=== PATIENT | female | born 1945 | race Caucasian/White ===

== ENCOUNTER 2018-01-28 00:09 | Emergency (ER) | payer MEDICARE, OTHER, SELFPAY ==
[2018-01-28] MEDS: Dexamethasone 10 MG/ML VIAL (14:35)
--- NOTE | 2018-01-28 16:17 | PDOC.ERCMPRO ---
Care Management Progress Note 01/28-Dr. Rebollar requested assistance with a [facility] appt early next week for re-evaluation of left upper eyelid edema, ?sting/bite. Referral, demographics, and physician note faxed to [facility] this am.
== END 2018-01-28 02:57 | disposition home or self-care (01) ==
PROVIDERS: Emergency Provider Physician Assistant; PCP Emergency Medicine
DX: H02.844 Edema of left upper eyelid (principal); I10 Essential (primary) hypertension
CPT/HCPCS: 99283; J1100

== ENCOUNTER → 2020-01-01 08:45 | Outpatient (BNVA) | payer MEDICARE, OTHER, SELFPAY | PROVIDERS: PCP Emergency Medicine; Referring Provider Emergency Medicine; Visit Provider Nurse Practitioner Gerontology | DX: N39.41 Urge incontinence (principal); I10 Essential (primary) hypertension | CPT/HCPCS: 99203; 99214 ==

== ENCOUNTER 2020-02-21 02:08 | Outpatient (CLI) | payer MEDICARE, OTHER, SELFPAY ==
--- NOTE | 2020-02-21 08:15 | DI.MAMMO_ITS ---
EXAM: MG MAMMO SCREENING CLINICAL HISTORY: screening,z12.39 TECHNIQUE: Bilateral full field digital CC and MLO mammographic images were obtained with 3D tomosyn thesis and utilizing computer aided detection (CAD). COMPARISON: Available for comparison. FINDINGS: Masses/Architectural Distortion: None seen. Microcalcifications: No suspicious pleomorphic-type are seen. Skin Thickening/Nipple Retraction: None. IMPRESSION: 1. No significant interval change with no specific features of malignancy noted. 2. Unless there is more urgent need, screening mammography is recommended, as per [employer] guidelines. BI-RADS Category 1 - Negative Breast Density - Category A - Almost entirely fatty A negative radiographic report should not delay biopsy if a dominant or clinically suspicious mass is present. Up to ten percent of cancers are not identified on mammography. A negative report may reinforce clinical impression. Adenosis and dense breasts may obscure an underlying neoplasm. False positive reports average 6 to 10%. Patient will receive a letter notifying them of these results.
== END 2020-02-21 02:28 ==
PROVIDERS: PCP Emergency Medicine; Visit Provider Emergency Medicine
DX: Z12.31 Encounter for screening mammogram for malignant neoplasm of breast (principal)
CPT/HCPCS: 77063; 77067

== ENCOUNTER 2020-10-14 13:45 | Outpatient (REF) | payer MEDICARE, OTHER, SELFPAY ==
[2020-10-14 20:51] LABS: Anion Gap 7.1 mmol/L (3-11); BUN 15 mg/dL (7-18); CO2 29.9 mmol/L (21.0-32.0); CREATININE 0.9 mg/dL (0.55-1.02); Calcium 9.4 mg/dL (8.5-10.1); Chloride 105 mmol/L (98-107); Glucose 83 mg/dL (74-106); Potassium 4.3 mmol/L (3.5-5.1); Sodium 142 mmol/L (136-145)
== END 2020-10-14 13:46 | disposition home or self-care (01) ==
LOC: LBN 13:45
PROVIDERS: PCP Emergency Medicine; Visit Provider Emergency Medicine
DX: I10 Essential (primary) hypertension (principal)
CPT/HCPCS: 80048

== ENCOUNTER 2021-05-28 02:38 | Outpatient (CLI) | payer MEDICARE, SELFPAY ==
--- NOTE | 2021-05-28 09:34 | DI.MAMMO_ITS ---
Exam(s) MAMMO SCREENING EXAM: MAMMO SCREENING CLINICAL HISTORY: screening,Z12.39. TECHNIQUE: Bilateral full field digital CC and MLO mammographic images were obtained with 3D tomosyn thesis and utilizing computer aided detection (CAD). COMPARISON: Prior mammograms dating back to 2011, the most recent being January 2020. FINDINGS: No CAD designations There are no new spiculated masses nor malignant appearing microcalcification groups. Partially calcified lymph node in the right axilla is unchanged from prior studies. There is no significant architectural distortion nor skin thickening-retraction. IMPRESSION: No radiographic evidence of malignancy. BI-RADS Category 1 - Negative Breast Density - Category A - Almost entirely fatty Breast density Category C or D implies that the patient has dense breast tissue. Dense breast tissue can make it harder to find cancer on a mammogram. Dense breast tissue is also associated with an incr eased risk of breast cancer. This information about the result of the mammogram report was provided to the patient to raise their awareness. Use this report when you speak with the patient about their risks for breast cancer, which includes their family history. At that time, you may recommend additional screening tests (Ultrasoun d or MRI) as these tests may add significant information. A negative radiographic report should not delay biopsy if a dominant or clinically suspicious mass is present. Up to ten percent of cancers are not identified on mammography. A negative report may reinforce clinical impression. Adenosis and dense breasts may obscure an underlying neoplasm. False positive reports average 6 to 10%. Patient will receive a letter notifying them of these results.
== END 2021-05-28 02:58 ==
PROVIDERS: PCP Emergency Medicine; Visit Provider Emergency Medicine
DX: Z12.31 Encounter for screening mammogram for malignant neoplasm of breast (principal)
CPT/HCPCS: 77063; 77067

== ENCOUNTER 2021-05-28 03:08 | Outpatient (CLI) | payer MEDICARE, SELFPAY ==
[2021-05-28 08:54] LABS: Anion Gap 5.2 mmol/L (3-11); BUN 13 mg/dL (7-18); CO2 32.8 mmol/L (21.0-32.0); CREATININE 0.8 mg/dL (0.55-1.02); Calcium 9.7 mg/dL (8.5-10.1); Chloride 104 mmol/L (98-107); Glucose 90 mg/dL (74-106); Potassium 4.4 mmol/L (3.5-5.1); Sodium 142 mmol/L (136-145)
== END 2021-05-28 03:09 | disposition home or self-care (01) ==
LOC: LBO 03:08
PROVIDERS: PCP Emergency Medicine; Visit Provider Emergency Medicine
DX: I10 Essential (primary) hypertension (principal)
CPT/HCPCS: 36415; 80048

== ENCOUNTER 2021-11-11 01:39 | Outpatient (CLI) | payer MEDICARE, OTHER, SELFPAY ==
--- NOTE | 2021-11-11 14:36 | DI.RAD_ITS ---
Exam(s) XR KNEE RT 3V AP,LAT,SAUL EXAM: XR KNEE RT 3V AP,LAT,SAUL CLINICAL HISTORY: knee pain x one week and gave out, fall,M25.561. TECHNIQUE: 2D digital imaging was performed. COMPARISON: No exams were available for comparison FINDINGS: 3 views No evidence of fracture although does appear to a small joint effusion. Minimal degenerative changes . No osseous. No osteophytes. No joint space narrowing on the weight-bearing. Small osteophyte of superior aspect. IMPRESSION: Mild findings as described above. Also small joint effusion. DATA REPOSITORY: RADIATION DOSE DELIVERED:
== END 2021-11-11 01:59 ==
PROVIDERS: PCP Family Medicine; Visit Provider Physician Assistant
DX: M25.561 Pain in right knee (principal); M25.461 Effusion, right knee
CPT/HCPCS: 73562

== ENCOUNTER → 2022-01-15 09:10 | Outpatient (BNVA) | payer MEDICARE, OTHER, SELFPAY | PROVIDERS: PCP Family Medicine; Referring Provider Emergency Medicine; Visit Provider Surgery | DX: Z86.010 Personal history of colon polyps (principal); Z12.11 Encounter for screening for malignant neoplasm of colon ==

== ENCOUNTER 2022-03-03 06:30 | Day surgery (SDC) | payer MEDICARE, OTHER, SELFPAY ==
--- NOTE | 2022-03-03 05:52 | W.PREOPHP ---
Assessment and Plan Assessment and plan (1) Encounter for colorectal cancer screening: Status: Acute Assessment and plan: The patient? is a pleasant? 76 -year-old female who is here to discuss another screening colonoscopy. ? She denies any changes in bowel habits, melena, hematochezia, unintentional weight loss or family history of colon cancer.? The procedure and risks were discussed.? The prep was reviewed in detail.? Risks, benefits and complications have been reviewed. Complications include but are not limited to bleeding, pain, perforation, missed small lesion/polyp, sore throat, aspiration and adverse reaction to the medications. Questions were entertained and answered to their satisfaction and they wished to proceed. No guarantees were given or implied. Medications to be stopped: none COVID Test: no Anesthesia: general (without airway) Previous surgical intolerances: No Previous surgical complications: No Pulmonary risk factors: age > 60 Date of surgery: 02/17/22 Planned procedure: Yes Sleep apnea risks: Yes Can climb one flight of stairs (12-13 steps) in less than 30 seconds without stopping and without symptoms: Yes The surgery proposed for this patient is: mod risk Active cardiac conditions: No Active risk factors: none ASA (acetylsalicylic acid): not used Beta blockers: No Proceed with colonoscopy under sedation History of Present Illness Narrative: Mrs Cortez is a pleasant 76-year-old female who I am seeing today in the office to discuss another screening colonoscopy.? She tells me that at one point she had 3 adenomatous polyps removed and was asked to come back in 3 years.? She had a colonoscopy in 2010 at [facility] which showed no polyps.? She was noted to have some descending and sigmoid diverticulosis.? She had a repeat surveillance colonoscopy in 2017 which also showed no polyps just diverticulosis in the descending and sigmoid colon.? She is here now for another surveillance.? She denies any changes in bowel habits, melena, hematochezia, unintentional weight loss or family history of colon cancer.? She does have some intermittent left lower quadrant pain which usually subsides by her eating smaller amounts and drinking more fluids.? She does have a sister who had ruptured diverticulitis and had to have part of her bowel removed and ended up with a colostomy which was then reversed.? The patient has not had any issues with the anesthesia used in the past.? She is also requesting to have little sedation so that she can watch.? I discussed with her that as long as she is comfortable we can do that.? If she starts to contract her muscles and push against the scope then I may need to have anesthesia give her more sedation to relax her muscles.? She understands this and wishes to proceed. She is a quite healthy 76-year-old.? She takes some hydrochlorothiazide for mild hypertension otherwise she takes calcium as a supplement and that said.? She denies any shortness of breath or chest pain with activity. There have been no changes in her health since she was last seen in the office Review of Systems All systems reviewed & are unremarkable except as noted in HPI and below PFSH All Active Problems Encounter for colorectal cancer screening (Acute) COVID-19 (Acute ~01/07/22) Actinic keratoses (Acute) White coat syndrome with diagnosis of hypertension (Acute) Incontinence (Acute) Sebaceous cyst (Acute) Gentle palpation over the area stimulated removal of sebaceous cyst above urethra. Cystoscopy firm, dent in color, no surrounding erythema warmth to touch or masses. Shellfish allergy (Acute 12/04/13) Polyp of colon (Acute) Osteoporosis (Acute) Kidney stone (Acute) 1986 Essential hypertension (Chronic) Endometriosis (Acute) Benign paroxysmal positional vertigo (Acute) positional, recurrent, Medical History Abnormal laboratory test elevated triglycerides; mildly elevated platelets Female infertility Surgical History Colonoscopy - [facility] [place] 05/09 [facility] [place]; NEG Dilation and curettage (~1979) X 2 Kidney Stone Extraction (~1985) Family History Mother Essential hypertension Dementia Stroke Father Substance abuse Personal history of malignant neoplasm LUNG Sister No problems noted. Grandfather Diabetes Heart disease Kidney disease Grandfather Heart disease Grandmother Stroke Grandmother Dementia Social History Smoking/Tobacco Use Status: Never Smoking risk assessment performed?: Yes Alcohol Intake: current Alcohol Intake frequency: 0-2 drinks per day Drug use: Never Substance use type: does not use Do you feel safe at home: Yes Do you feel safe in your relationship?: Yes Meds Allergies and Home Medications Allergies Allergy/AdvReac Type Severity Reaction Status Date / Time shellfish derived Allergy Severe carries Verified 03/03/22 07:25 epi-pen Home Medications Medication Instructions Recorded Confirmed Type cholecalciferol (vitamin D3) 25 1,000 unit PO DAILY 08/17/12 03/03/22 History mcg (1,000 unit) capsule epinephrine 0.3 mg/0.3 mL 0.3 mg (0.3 mL) IM ONCE #1 pen 07/16/20 03/02/22 Rx injection, auto-injector (EpiPen 2-Parmjit) bisacodyl 5 mg tablet,delayed 5 mg PO ONCE colonscopy bowel prep 01/15/22 03/02/22 Rx release (Dulcolax (bisacodyl)) #4 tabs polyethylene glycol 3350 17 238 g PO ONCE colonoscopy prep 01/15/22 03/02/22 Rx gram/dose oral powder #238 grams hydrochlorothiazide 25 mg tablet 25 mg PO DAILY #90 tabs 01/19/22 03/03/22 Rx Exam Const General: cooperative, comfortable and no acute distress Orientation: alert and oriented x3 Resp Effort & Inspection: normal respiratory effort Auscultation: clear to auscultation bilaterally Cardio Rate: regular rate Rhythm: regular rhythm
--- NOTE | 2022-03-03 05:54 | COLE_ITS ---
Colonoscopy Report Date of procedure: 03/03/22 Pre-op diagnosis general: colon cancer screening, Hx of polyps Post-op diagnosis procedure note: other (polyps and diverticulosis) Procedure: Colonoscopy with polypectomy Surgeon: Natalia Barreto Anesthesia Type: General:No Airway Estimated blood loss (mL): 3 Pathology: other (cending, sigmoid and rectal polyp) Complications: None Disposition: same day Indications: The patient? is a pleasant? 76 -year-old female who is here to discuss another screening colonoscopy. ? She denies any changes in bowel habits, melena, hematochezia, unintentional weight loss or family history of colon cancer.? The procedure and risks were discussed.? The prep was reviewed in detail.? Risks, benefits and complications have been reviewed. Complications include but are not limited to bleeding, pain, perforation, missed small lesion/polyp, sore throat, aspiration and adverse reaction to the medications. Questions were entertained and answered to their satisfaction and they wished to proceed. No guarantees were given or implied. Prep: Miralax/Dulcolax Procedure Start Time: 08:33 Procedure End Time: 08:57 Retraction Time: 16 minutes Findings: 3 sessile polyps Procedure Description: After informed consent was obtained the patient was taken to the procedure room and placed in a left decubitous position. Monitors were applied and a time out was done. The patients name, date of , procedure, allergies to medications and metal in their body was reviewed. The patient was then sedated. Once sedated and comfortable a rectal exam was done. External exam was normal. Internal exam revealed a normal sphincter tone and no palpable masses. The scope was then introduced and retro-flexed. No internal hemorrhoids, polyps or masses were identified on retro-flexion. The scope was then advanced to the cecum without difficulty. The ileocecal vlave and appendiceal orifice were identified. The prep was adequate. The scope was then slowly retracted over 16 minutes back into the rectum. Polyps were removed with cold forceps in the as cending colon, sigmoid colon and rectum. There was mild descending and sigmoid diverticulosis noted. The scope was removed and the patient was woken up and taken back to Same day surgery in stable condition. The patient tolerated the procedure well and there were no immediate complications.
--- NOTE | 2022-03-03 05:56 | W.PM.DSUDISC ---
Discharge Plan Disposition Patient Disposition: HOME Condition: Good Discharge Details Reason For Visit: colonoscopy Attending Provider: Natalia Barreto Primary Care Provider: Stephanie Jara Home Meds and New Rx's Prescriptions: Continued hydrochlorothiazide 25 mg tablet 25 mg PO DAILY Qty: 90 3RF cholecalciferol (vitamin D3) 1,000 UNIT capsule 1,000 unit PO DAILY epinephrine [EpiPen 2-Parmjit] 0.3 mg/0.3 mL auto-injector 0.3 mg IM ONCE Qty: 1 3RF Discontinued polyethylene glycol 3350 17 gram/dose powder 238 g PO ONCE Qty: 238 0RF Rx Instructions: take per colonoscopy instructions bisacodyl [Dulcolax (bisacodyl)] 5 mg tablet,delayed release (DR/EC) 5 mg PO ONCE Qty: 4 0RF Rx Instructions: take per colonoscopy instructions Discharge Instructions Additional Instructions: Findings: polyps n Diverticulosis Follow up: will depend on pathology results Please call if you develop: fevers >101.5 Nausea or Vomiting Abdominal pain that is not transient Rectal bleeding that is more then a tbsp A hard abdomen and inability to pass gas DAY SURGERY UNIT POST ENDOSCOPY INSTRUCTIONS Instructions for everyone who is given Anesthesia: For your safety, please do the following for the next 24 Hours: a. Do not drive or operate dangerous equipment b. Do not drink alcohol beverages or use any recreational drugs for the first 24 hours or while taking pain medications. The medications in your body may have a reaction that can be dangerous. c. Do not make any important decisions or sign any important papers 1. Generally there are no restrictions on your activity after a day or so has gone by, but you may feel a bit fatigued for a few days. 2. After you arrive home you may have a light meal and return to a normal diet as you can tolerate it without feeling sick to your stomach. 3. After surgery, you may feel pain or discomfort. This should be only transient, but if it persists please contact your doctor. 4. If there are any questions regarding the findings of your procedure, please feel free to contact your doctor. 6. If you are unable to contact your doctor with a problem, contact the hospital at [phone]. 7. Continue all your regular medications unless directed otherwise. I understand the above instructions and have no questions. Signature of Patient or Responsible Adult Escort Date/Time Name of Responsible Adult Escort Signature of Nurse Date/Time Activity:: Activity as Tolerated Diet:: high fiber diet Discharge Orders Discharge Orders: Discharge Order (Routine); Ordered 03/03/22 Ordered By: Natalia Barreto DS: Diagnosis Discharge Diagnosis (1) Encounter for colorectal cancer screening: Status: Acute
--- NOTE | 2022-03-03 06:21 | ANES.PREOP_ITS ---
General Info Date of Service Date Performed: 03/03/22 Height: 5 ft 3 in Weight: 60.101 kg Body Mass Index (BMI): 23.4 Surgical Procedure: Operation Date: 03/03/22 08:35 Proposed Procedure Side Surgeon p Colonoscopy Natalia Barreto MD Meds Allergies and Home Medications Allergies Allergy/AdvReac Type Severity Reaction Status Date / Time shellfish derived Allergy Severe carries Verified 03/03/22 07:25 epi-pen Home Medication Medication Instructions Recorded cholecalciferol (vitamin D3) 25 1,000 unit PO DAILY 08/17/12 mcg (1,000 unit) capsule epinephrine 0.3 mg/0.3 mL 0.3 mg (0.3 mL) IM ONCE #1 pen 07/16/20 injection, auto-injector (EpiPen 2-Parmjit) bisacodyl 5 mg tablet,delayed 5 mg PO ONCE colonscopy bowel prep 01/15/22 release (Dulcolax (bisacodyl)) #4 tabs polyethylene glycol 3350 17 238 g PO ONCE colonoscopy prep 01/15/22 gram/dose oral powder #238 grams hydrochlorothiazide 25 mg tablet 25 mg PO DAILY #90 tabs 01/19/22 Current Visit Medications: Current Medications Generic Name Dose Route Start Last Admin Trade Name Freq PRN Reason Stop Dose Admin Hyoscyamine Sulfate 0.125 mg 03/03/22 05:57 Hyoscyamine 0.125 Mg Sl/Oral/Chew SL DIRECTED PRN Ringer's Solution 1,000 mls @ 80 mls/hr 03/03/22 06:00 IV 04/01/22 23:59 INFUSION [facility] IV Miscellaneous Supplies 1 each 03/03/22 06:00 Iv Access IV 04/01/22 23:59 DIRECTED [facility] Ondansetron HCl 4 mg 03/03/22 05:57 Ondansetron 4 Mg/2 Ml Vial IVP Q4H PRN PRN Nausea / Vomiting Sodium Chloride 0 ml 03/03/22 06:00 Normal Saline Flush 10 Ml Syr IV 04/01/22 23:59 PRN PRN Sodium Chloride 0 ml 03/03/22 06:00 Normal Saline 10 Ml Vial IJ 04/01/22 23:59 DIRECTED PRN Sterile Water 0 ml 03/03/22 06:00 Water,Injection,Sterile 10 Ml Vial IJ 04/01/22 23:59 [facility]ED [facility]N [facility] Active Problems Active Problems: Problem Status Onset Code Encounter for colorectal cancer screening Z12.11, Z12.12 COVID-19 ~01/07/22 U07.1 Actinic keratoses L57.0 White coat syndrome with diagnosis of hypertension I10 Incontinence R32 Sebaceous cyst L72.3 Shellfish allergy 12/04/13 Z91.013 Polyp of colon K63.5 Osteoporosis M81.0 Kidney stone N20.0 Essential hypertension I10 Endometriosis N80.9 Benign paroxysmal positional vertigo H81.10 Medical History Medical History Abnormal laboratory test elevated triglycerides; mildly elevated platelets Female infertility Surgical History Surgical [place] [facility] [place] [facility] [place] NEG Dilation and curettage (~1979) X 2 Kidney Stone Extraction (~1985) Tobacco Smoking/Tobacco Use Status: Never Alcohol Alcohol Intake: current Alcohol intake frequency: 0-2 drinks per day Substance Use Substance use: Never Substance use type: does not use Vital Signs and Lab Results Vital Signs Most Recent Vital Signs in EMR: Temp Pulse Resp BP Pulse Ox 36.5 C 83 16 164/74 H 98 03/03/22 07:19 03/03/22 07:19 03/03/22 07:19 03/03/22 07:19 03/03/22 07:19 Lab Results Blood Type / Crossmatch: No Data to Display Complete Blood Count: No Data to Display Complete Metabolic Panel: No Data to Display Liver Function Panel: No Data to Display Coagulation Panel: No Data to Display Cardiac Panel: No Data to Display Arterial Blood Gas: No Data to Display Venous Blood Gas: No Data to Display Pancreas Panel: No Data to Display Thyroid Panel: No Data to Display Infectious Disease: No Data to Display Blood Cultures: No Data to Display Toxicology Panel: No Data to Display Anesthesia Assessment and Plan Anesthesia History Personal History: No History of Anesthesia Complications Family History: No Family History of Anesthesia Complications Exercise Tolerance Exercise Tolerance: Metabolic Equivalents>4 Cardiac & Pulmonary Exam Cardiac Exam: Normal S1/S2 Heart Sounds Pulmonary Exam: Clear Bilateral Breath Sounds Implantable Cardiac Device Does patient have a Pacemaker or an ICD?: No Airway Exam Known Difficult Airway: No Mallampati Class: 3 Mouth Opening: Normal (> 3cm) Thyromental Distance: Greater than 3 cm Neck Range of Motion: Full ROM Neck Circumference: Normal Teeth Condition: Normal Dentition ASA Classification ASA Score: ASA 2 Emergency Case?: No NPO Status NPO Status: NPO Clears >2 hours, Solids >8 hours Anesthesia Plan Resuscitation Status: Full Code Anesthesia Technique: General Anesthesia Airway Planned: Natural Airway Monitors Used: Standard Monitors Preoperative Comments:: 76 yo female with history of colon polyps for colo. Sig PMHx: HTN (HCTZ), vertigo, never smoker, occ EtOH.
[2022-03-03 07:19] VITALS: BP 164/74; PULSE 83; RESP 16; TEMP 36.5; O2SAT 98
[2022-03-03] MEDS: Lactated Ringers 1,000 ML 80 ML IV (07:28)
[2022-03-03 07:36] VITALS: BMI 23.4
--- NOTE | 2022-03-03 08:45 | BOWEL_PTH ---
PATIENT: Kellie Cortez LOC: [facility] U#:[id number] AGE/SX: 76/F ROOM: RE03/03/[address]: Natalia Barreto MD : 1945 BED: DIS: 03/03/2022 SPEC #: [id number] RECD: 03/03/22 12:47 STATUS: COLLINS REQ #: [id number] NOEMY: 03/03/22 08:[address]: Natalia Barreto DEPT: Surgical Specimen RECD BY: Diana Dejesus ENTERED: 03/03/22 12:49 SP TYPE: Bowel OTHR DR: Stephanie Jara Tissues: 1 - BIOPSY BOWEL 2 - BIOPSY BOWEL 3 - BIOPSY BOWEL Procedures: GROSS AND MICRO LEVEL 4 Comments: [id number]
[2022-03-03 09:00] VITALS: BP 103/70; PULSE 72; RESP 16; TEMP 36.4; O2SAT 97
--- NOTE | 2022-03-03 09:22 | W.ANESPOSTOP ---
Postoperative Evaluation Date, Time and Location Date Performed: 03/03/22 Time Performed: 09:15 Patient Location: Day Surgery Unit Vital Signs Most Recent Imported Vital Signs: Most Recent Vital Signs Temp Pulse Resp BP Pulse Ox 36.4 C L 72 16 103/70 97 03/03/22 09:00 03/03/22 09:00 03/03/22 09:00 03/03/22 09:00 03/03/22 09:00 Pain Score Most Recent Pain Score: Most Recent Pain Score Pain Level 0 03/03/22 09:00 Assessment Mental Status: Awake (Alert & Oriented to Patient Baseline) Airway and Respiratory Function: Patent airway with normal (patient baseline) respiratory exam Cardiovascular Function: Hemodynamically Stable Hydration Status: Adequately Hydrated Nausea & Vomiting: No Nausea or Vomiting Pain: Pt. Denies Any Pain Peripheral Nerve Block: Patient did not receive a nerve block
[2022-03-03 09:30] VITALS: BP 139/57; PULSE 64; RESP 16; TEMP 36.6; O2SAT 97
== END 2022-03-03 09:45 | disposition home or self-care (01) ==
PROVIDERS: PCP Family Medicine; Visit Provider Surgery
PROC: 0DJD8ZZ Inspection of Lower Intestinal Tract, Via Natural or Artificial Opening Endoscopic (ICD-10-PCS; CPT 45378; principal; 2022-03-03 08:30)
DX: Z12.11 Encounter for screening for malignant neoplasm of colon (principal); K62.1 Rectal polyp; K63.5 Polyp of colon; K57.30 Diverticulosis of large intestine without perforation or abscess without bleeding; Z86.010 Personal history of colon polyps
CPT/HCPCS: 45380; 88305

== ENCOUNTER 2022-05-12 03:10 | Outpatient (CLI) | payer MEDICARE, OTHER, SELFPAY ==
[2022-05-12 09:01] LABS: BUN 15 mg/dL (7-18); CREATININE 0.9 mg/dL (0.55-1.02); Calcium 9.8 mg/dL (8.5-10.1); Calculated LDL 119 mg/dL (<100); Chloride 99 mmol/L (98-107); Cholesterol 237 mg/dL (<200); Estimated GFR 66.67 (mL/min/1.73m2); Glucose 97 mg/dL (74-106); HDL Cholesterol 91 mg/dL (40-60); Potassium 3.9 mmol/L (3.5-5.1); Sodium 138 mmol/L (136-145); Triglyceride 137 mg/dL (<150)
== END 2022-05-12 03:11 | disposition home or self-care (01) ==
LOC: LBO 03:10
PROVIDERS: PCP Family Medicine; Visit Provider Family Medicine
DX: I10 Essential (primary) hypertension (principal); Z00.00 Encounter for general adult medical examination without abnormal findings
CPT/HCPCS: 36415; 80048; 80061

== ENCOUNTER 2023-01-19 09:37 | Outpatient (REF) | payer MEDICARE, SELFPAY ==
--- NOTE | 2023-01-19 08:20 | SKI_PTH ---
PATIENT: Kellie Cortez LOC: N U#:[id number] AGE/SX: 77/F ROOM: RE01/19/[address]: Stephanie Jara : 1945 BED: DIS: 01/19/2023 SPEC #: [id number] RECD: 01/19/23 12:57 STATUS: COLLINS REQ #: [id number] NOEMY: 01/19/23 08:[address]: Stephanie Jara DEPT: Surgical Specimen RECD BY: Diana Dejesus Tissues: 1 - SKIN BIOPSY(SHAVE/PUNCH) Procedures: SKIN LEVEL 4 Comments: [id number]
== END 2023-01-19 09:38 | disposition home or self-care (01) ==
LOC: LBN 09:37
PROVIDERS: PCP Family Medicine; Visit Provider Family Medicine
DX: B07.8 Other viral warts (principal); L85.8 Other specified epidermal thickening
CPT/HCPCS: 88305

== ENCOUNTER → 2023-04-12 00:33 | Outpatient (CLI) | payer MEDICARE, SELFPAY ==
--- NOTE | 2023-04-12 07:15 | DI.MAMMO_ITS ---
Exam(s) MAMMO SCREENING EXAM: MAMMO SCREENING CLINICAL HISTORY: screening,z12.39 TECHNIQUE: Mammograms were interpreted according to the usual protocol including computer analysis w [employer] CAD system, tomosynthesis and C-view imaging. COMPARISON: 2013 through 2020 FINDINGS: The breasts are composed of mainly fatty density , Breast Density category A. No suspicious masses or suspicious microcalcifications are seen. No skin thickening or abnormal axillary lymph nodes are seen. There has been no significant change from prior exams. IMPRESSION: BI-RADS Category 1, Negative mammogram Yearly screening mammography is recommended. Breast Density - Category A, fatty density. A negative radiographic report should not delay biopsy if a dominant or clinically suspicious mass is present. Up to ten percent of cancers are not identified on mammography. A negative report may reinforce clinical impression. Adenosis and dense breasts may obscure an underlying neoplasm. False positive reports average 6 to 10%. Patient will receive a letter notifying them of these results.
== END ==
PROVIDERS: PCP Family Medicine; Visit Provider Family Medicine
DX: Z12.31 Encounter for screening mammogram for malignant neoplasm of breast; Z78.0 Asymptomatic menopausal state
CPT/HCPCS: 77063; 77067

== ENCOUNTER 2023-04-12 01:55 | Outpatient (CLI) | payer MEDICARE, SELFPAY ==
[2023-04-12 08:11] LABS: BUN 13 mg/dL (7-18); CREATININE 0.8 mg/dL (0.55-1.02); Calcium 9.7 mg/dL (8.5-10.1); Chloride 102 mmol/L (98-107); Estimated GFR 76.31 (mL/min/1.73m2); Glucose 93 mg/dL (74-106); Potassium 3.8 mmol/L (3.5-5.1); Sodium 139 mmol/L (136-145)
== END 2023-04-12 01:56 | disposition home or self-care (01) ==
LOC: LBO 01:55
PROVIDERS: PCP Family Medicine; Visit Provider Family Medicine
DX: I10 Essential (primary) hypertension (principal)
CPT/HCPCS: 36415; 80048

== ENCOUNTER 2023-04-15 15:03 | Outpatient (CLI) | payer MEDICARE, SELFPAY ==
[2023-04-15 10:18] LABS: Calculated LDL 85 mg/dL (<100); Cholesterol 210 mg/dL (<200); HDL Cholesterol 103 mg/dL (40-60); Triglyceride 111 mg/dL (<150)
== END 2023-04-15 15:04 | disposition home or self-care (01) ==
LOC: LBO 15:03
PROVIDERS: PCP Family Medicine; Visit Provider Family Medicine
DX: H53.9 Unspecified visual disturbance (principal); I10 Essential (primary) hypertension; Z13.6 Encounter for screening for cardiovascular disorders
CPT/HCPCS: 36415; 80061

== ENCOUNTER → 2023-04-15 23:01 | Outpatient (CLI) | payer MEDICARE, SELFPAY ==
--- NOTE | 2023-04-15 09:15 | DI.US_ITS ---
Exam(s) US CAROTID EXAM: US CAROTID CLINICAL HISTORY: transient vision loss, essential htn, H53.9, I10. TECHNIQUE: Ultrasound carotids performed using grayscale, color-flow, and spectral Doppler imaging. COMPARISON: No exams were available for comparison FINDINGS: CAROTID ARTERIES: Calcified plaque at the level the carotid bulbs; less so in the proximal internal c arotid arteries. The amount of plaque on left side appears slightly more so than the right side. Ho wever, there are no elevated velocities on either side indicating amount of stenosis is less than 50 percent. Suspect approximately 20 percent, visually. VERTEBRAL ARTERIES: Antegrade flow demonstrated in both vertebral arteries. Measurements: R Bulb: 81.9cm/s PS / 20.7cm/s ED R CCA: 110.9cm/s PS / 30.3cm/s ED R ECA: 119.9cm/s PS / 14.4cm/s ED R ICA Prox: PS / ED R ICA Mid: 106.2cm/s PS / 19.7cm/s ED R ICA Distal: 98.7cm/s PS /25cm/s ED R Vert: 67.3cm/s PS / 19.5cm/s ED R SVR: 1 R DVR: 0.6 L Bulb: 110.8cm/s PS / 21.6cm/s ED L CCA: PS / 30.7cm/s ED L ECA: 104.4cm/s PS / 14.2cm/s ED L ICA Prox: 83.2cm/s PS / 23.2cm/s ED L ICA Mid: 112.5cm/s PS / 35.4cm/s ED L ICA Distal: 97.8cm/s PS / 36.8cm/s ED L Vert: 82cm/s PS / 21.7cm/s ED L SVR: 1 L DVR: 1.2 IMPRESSION: Some plaque noted bilaterally at the carotid bulbs, slightly more so on the left side. Non elevated velocities indicate amount of stenosis is less than 50 percent. Visually I estimate approximately 20 -30% stenosis Antegrade flow is demonstrated in both vertebral arteries. Criteria for Carotid Stenosis: Normal: ICA PSV <125 cm/s no plaque or intimal thickening is visible. <50% stenosis: ICA PSV <125 cm/s and plaque or intimal thickening is visible. 50-69% stenosis: ICA PSV is 125-250 cm/s and plaque is visible. >70% stenosis to near occlusion: ICA PSV >250 cm/s with visible plaque and luminal narrowing. DATA REPOSITORY:
--- NOTE | 2023-04-15 09:30 | DI.MRI_ITS ---
Exam(s) MR BRAIN WO/W EXAM: MR BRAIN WO/W CLINICAL HISTORY: transient vision loss, essential htn, H53.9, I10 TECHNIQUE: Multiplanar multisequence MRI of the brain was performed. Both noninfused and contrast i nfused sequences were performed. IV Contrast injected was 12 cc Dotarem. COMPARISON: No exams were available for comparison FINDINGS: CEREBRAL PARENCHYMA: No evidence of intracranial hemorrhage, mass effect nor shift of midline structu re. No extraaxial fluid collections. Ventricles are not enlarged nor shifted. There is no significant focal signal abnormality in the cerebellar hemispheres nor within the yudelka, m idbrain, and thalami. There is no abnormal signal abnormality in the periventricular white matter. DWI: No areas of restricted diffusion to suggest acute ischemic event. SWI: No microhemorrhages evident. There are no ring enhancing lesions in the brain. There is no abnormal meningeal enhancement. PITUITARY GLAND: No mass nor parasellar abnormality. No obvious abnormality in the cavernous sinuses. FLOW VOIDS: The expected flow void are noted. No evidence of obvious aneurysm nor obvious vascular ma lformation. At the skull base the right vertebral artery is dominant and the main contributor to form ation of the basilar artery. PARANASAL SINUSES: The visualized paranasal sinuses appear unremarkable. ORBITS: No obvious abnormal findings. IMPRESSION: 1. No significant intracranial findings on this MRI scan of the brain. 2. No abnormal enhancing intracranial findings. There are no ring enhancing lesions in the brain and there is no abnormal meningeal enhancement. DATA REPOSITORY:
[2023-04-15] MEDS: Gadoterate meglumine 20 ML SYRINGE 12 ML IVP (11:41)
[2023-04-15] MEDS: Normal Saline Flush 10 ML SYR IJ (11:42)
== END ==
PROVIDERS: PCP Family Medicine; Visit Provider Family Medicine
DX: I65.23 Occlusion and stenosis of bilateral carotid arteries (principal); I10 Essential (primary) hypertension
CPT/HCPCS: 70553; 93880

== ENCOUNTER 2023-04-28 12:43 | Outpatient (CLI) | payer MEDICARE, SELFPAY | END 2023-04-28 12:44 | disposition home or self-care (01) | PROVIDERS: PCP Family Medicine; Visit Provider Family Medicine | DX: H53.9 Unspecified visual disturbance (principal); I10 Essential (primary) hypertension | CPT/HCPCS: 93246 ==

== ENCOUNTER 2023-05-24 08:55 | Outpatient (CLI) | payer MEDICARE, SELFPAY ==
--- NOTE | 2023-05-24 12:50 | W.CARDEVENT ---
Date of service: 05/24/23 Time of Service: 12:50 Cardiac Event Recorder Referring Provider:: Estefani Indications:: Visual disturbance Cardiac Event Note: This was a 14-day monitor on this patient with unspecified visual disturbance and history of hypertension. 1. The underlying rhythm is sinus, rate range 52 to 141 bpm with average of 71 bpm. 2. Several supraventricular ectopics, sometimes aberrantly conducted (computer read as ventricular ectopics) with no significant runs of supraventricular tachycardia. 3. No significant ventricular ectopy. There were aberrantly conducted supraventricular ectopics. 4. No evidence for atrial fibrillation or malignant bradycardias.
--- NOTE | 2023-05-24 13:03 | W.CARDEVENT ---
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 1. The underlying rhythm is sinus, rate range 54 to 177 bpm with average of 87 bpm. All bradycardias and tachycardias were physiologic. 2. Rare supraventricular ectopics, sometimes aberrantly conducted. 3. No significant ventricular ectopy 4. 1 patient triggered event not correlated to any arrhythmia.
== END 2023-05-24 08:56 | disposition home or self-care (01) ==
LOC: CARDOPNVT 08:55
PROVIDERS: PCP Family Medicine; Visit Provider Internal Medicine Interventional Cardiology
DX: H53.8 Other visual disturbances (principal); I49.9 Cardiac arrhythmia, unspecified
CPT/HCPCS: 00123; 93248

== ENCOUNTER 2024-05-01 01:43 | Outpatient (CLI) | payer MEDICARE, SELFPAY ==
--- NOTE | 2024-05-01 07:45 | DI.MAMMO_ITS ---
Exam(s) MAMMO SCREENING EXAM: MAMMO SCREENING CLINICAL HISTORY: screening,z12.39 TECHNIQUE: Mammograms were interpreted according to the usual protocol including computer analysis w [employer] CAD system, tomosynthesis and C-view imaging. COMPARISON: 2015 through 2022 FINDINGS: The breasts are composed of mainly fatty density , Breast Density category A. No suspicious masses or suspicious microcalcifications are seen. No skin thickening or abnormal axillary lymph nodes are seen. There has been no significant change from prior exams. IMPRESSION: BI-RADS Category 1, Negative mammogram Yearly screening mammography is recommended. Breast Density - Category A, fatty density. A negative radiographic report should not delay biopsy if a dominant or clinically suspicious mass is present. Up to ten percent of cancers are not identified on mammography. A negative report may reinforce clinical impression. Adenosis and dense breasts may obscure an underlying neoplasm. False positive reports average 6 to 10%. Patient will receive a letter notifying them of these results.
== END 2024-05-01 02:03 ==
LOC: DI 01:44
PROVIDERS: PCP Family Medicine; Visit Provider Family Medicine
DX: Z12.31 Encounter for screening mammogram for malignant neoplasm of breast (principal); R92.313 Mammographic fatty tissue density, bilateral breasts
CPT/HCPCS: 77063; 77067

== ENCOUNTER 2024-10-12 09:56 | Outpatient (REF) | payer MEDICARE, SELFPAY ==
[2024-10-12 22:23] LABS: Anion Gap 7.3 mmol/L (3-11); BUN 23 mg/dL (7-18); CO2 31.7 mmol/L (21.0-32.0); CREATININE 0.9 mg/dL (0.55-1.02); Calcium 10.5 mg/dL (8.5-10.1); Chloride 100 mmol/L (98-107); Estimated GFR 65.44 (mL/min/1.73m2); Glucose 89 mg/dL (74-106); Sodium 139 mmol/L (136-145)
== END 2024-10-12 09:57 | disposition home or self-care (01) ==
LOC: LBN 09:56
PROVIDERS: PCP Family Medicine; Visit Provider Family Medicine
DX: I10 Essential (primary) hypertension (principal)
CPT/HCPCS: 80048

== ENCOUNTER 2024-10-19 00:51 | Outpatient (CLI) | payer MEDICARE, SELFPAY ==
--- NOTE | 2024-10-19 08:15 | DI.DEXA_ITS ---
Exam(s) XR DEXA BONE DENSITY W/WO KYLIE EXAM: XR DEXA BONE DENSITY W/WO KYLIE CLINICAL HISTORY: Screening,menopausal disorder,n95.9 TECHNIQUE: COMPARISON: CR RIGHT HIP COMPLETE from 07/04/2013 FINDINGS: Lateral Spine Image: Unremarkable. No compression deformities identified. Left hip: Total T-Score: -1.2 Total Z-Score: 0.8 T- and Z-scores: Findings are consistent with osteopenia. Lumbar Spine: Total T-Score: -0.6 Total Z-Score: 2.0 T- and Z-scores: Within normal limits. IMPRESSION: No evidence of osteoporosis.
== END 2024-10-19 01:11 ==
LOC: DI 00:51
PROVIDERS: PCP Family Medicine; Visit Provider Family Medicine
DX: N95.9 Unspecified menopausal and perimenopausal disorder (principal); Z13.820 Encounter for screening for osteoporosis
CPT/HCPCS: 77080

== ENCOUNTER 2024-10-19 01:32 | Outpatient (CLI) | payer MEDICARE, SELFPAY ==
[2024-10-19 14:03] LABS: ALT 21 U/L (14-59); AST 21 U/L (15-37); Albumin 4.1 g/dL (3.4-5.0); Alkaline Phosphatase 82 U/L (46-116); Anion Gap 6.1 mmol/L (3-11); BUN 19 mg/dL (7-18); Bilirubin, Total 0.3 mg/dL (0.2-1.0); CO2 31.9 mmol/L (21.0-32.0); CREATININE 0.9 mg/dL (0.55-1.02); Calcium 10.1 mg/dL (8.5-10.1); Chloride 102 mmol/L (98-107); Estimated GFR 65.44 (mL/min/1.73m2); Glucose 88 mg/dL (74-106); Potassium 4.2 mmol/L (3.5-5.1); Sodium 140 mmol/L (136-145); Total Protein 7.7 g/dL (6.4-8.2); Vitamin D 25 Total 36 ng/mL (30-100)
[2024-10-19 22:01] LABS: Parathyroid Hormone,Intact 78 pg/mL (19-88)
== END 2024-10-19 01:33 | disposition home or self-care (01) ==
LOC: LBO 01:33
PROVIDERS: PCP Family Medicine; Visit Provider Family Medicine
DX: E83.52 Hypercalcemia (principal); Z00.00 Encounter for general adult medical examination without abnormal findings
CPT/HCPCS: 36415; 80053; 82306; 83970